=== PATIENT | male | born 2000 | race Caucasian/White ===

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

== ENCOUNTER 2022-06-22 09:01 | Emergency (ER) | payer OTHER ==
[~2022-06-22 09:01] MED LIST changes: +NAPROXEN500 MG PO
[2022-06-22] MEDS ORDERED: PREDNISONE 20MG20 MG PO (09:31)
== END 2022-06-22 09:40 | disposition home or self-care (01) ==
LOC: FER 09:01
DX: T78.40XA Allergy, unspecified, initial encounter (principal)
CPT/HCPCS: 99282; J7512

== ENCOUNTER 2022-07-22 18:53 | Emergency (ER) | payer OTHER ==
[~2022-07-22 18:53] MED LIST changes: +PREDNISONE 20MG20 MG PO
== END 2022-07-22 20:52 | disposition home or self-care (01) ==
LOC: FER 18:53
DX: S99.921A Unspecified injury of right foot, initial encounter (principal); F17.200 Nicotine dependence, unspecified, uncomplicated; W20.8XXA Other cause of strike by thrown, projected or falling object, initial encounter; Y92.009 Unspecified place in unspecified non-institutional (private) residence as the place of occurrence of the external cause
CPT/HCPCS: 73630; J1885